=== PATIENT | female | born 1940 | race Two or more races ===

== ENCOUNTER 2017-12-06 23:38 | Inpatient (IN) | payer MEDICARE, MEDICAID ==
[~2017-12-06] VITALS: Ht 157.5 cm; Wt 72.5 kg
[2017-12-07] MEDS ORDERED: SODIUM CHLORIDE 0.9% 1,000ML IVBOLUS ONE ×2 (00:30→01:30)
[2017-12-07 00:50] LABS: BASOPHILS % (AUTO) 0 % (0-1); EOSINOPHILS # (AUTO) 0.15 x10^3/uL (0-0.4); EOSINOPHILS % (AUTO) 1 % (1-7); LYMPHOCYTES # (AUTO) 0.89 x10^3/uL (1-3.4); LYMPHOCYTES % (AUTO) 6 % (22-44); MD NO; MEAN CORPUSCULAR HEMOGLOBIN 32.5 pg (27.0-34.8); MEAN CORPUSCULAR HGB CONC 34.4 g/dL (32.4-35.8); MEAN CORPUSCULAR VOLUME 94.5 fL (80-100); MEAN PLATELET VOLUME 10.2 fL (7.4-10.4); MONOCYTES % (AUTO) 5 % (2-9); NEUTROPHILS # (AUTO) 12.22 x10^3/uL (1.8-6.8); NEUTROPHILS % (AUTO) 88 % (42-75); PLATELET COUNT 218 x10^3/uL (130-400); RED BLOOD COUNT 4.73 x10^6/uL (3.82-5.3); RED CELL DISTRIBUTION WIDTH 12.9 % (9.6-15.2)
[2017-12-07 00:59] LABS: ALANINE AMINOTRANSFERASE 34 U/L (12-78); ALBUMIN 4.1 g/dL (3.4-5.0); ANION GAP 8 mmol/L (5-15); CALCIUM 9.3 mg/dL (8.5-10.1); CHLORIDE 106 mmol/L (98-107); CREATININE 0.68 mg/dL (0.55-1.02)
[2017-12-07 01:02] LABS: ALKALINE PHOSPHATASE 92 U/L (45-117); TOTAL PROTEIN 7.6 g/dL (6.4-8.2)
[2017-12-07 01:14] LABS: INTERNATIONAL NORMALIZED RATIO 1.05 (0.93-1.1); PROTHROMBIN TIME 10.8 Seconds (9.6-11.5)
[2017-12-07] MEDS ORDERED: LOSA25TA5 PO (01:22)
[2017-12-07] MEDS ORDERED: ATOR20TA PO (01:22)
[2017-12-07] MEDS ORDERED: FEXO180T15 PO (01:22)
[2017-12-07] MEDS ORDERED: HYDR12.53 PO (01:22)
[2017-12-07 01:58] LABS: MICROSCOPIC NOT IND
[2017-12-07 02:08] LABS: CULTURE INDICATED? NO
[2017-12-07] MEDS ORDERED: POLYETHYLENE GLYCOL 17 GM PACKET PO PRN (03:30)
[2017-12-07] MEDS ORDERED: hydrALAzine 20 MG/ML, 1ML IVPush PRN (03:30)
[2017-12-07] MEDS ORDERED: OXYcodone IR 5MG TABLET PO PRN (03:30)
[2017-12-07] MEDS ORDERED: PROMETHAZINE 25 MG/ML, 1ML IM PRN (03:30)
[2017-12-07] MEDS ORDERED: ENALAPRILAT 1.25 MG/ML, 2ML IVPush PRN (03:30)
[2017-12-07] MEDS ORDERED: LABETALOL 5MG/ML, 20ML IVPush PRN (03:30)
[2017-12-07] MEDS ORDERED: BISACODYL 10 MG SUPP PR PRN (03:30)
[2017-12-07] MEDS ORDERED: ACETAMINOPHEN 325 MG TABLET PO PRN (03:30)
[2017-12-07] MEDS ORDERED: ONDANSETRON 2MG/ML, 2ML IVPush PRN (03:30)
[2017-12-07] MEDS ORDERED: DOCUSATE 100 MG CAPSULE PO PRN (03:30)
[2017-12-07] MEDS ORDERED: morphine SULFATE 10 MG/ML, 1ML IVPush PRN (03:30)
[2017-12-07] MEDS ORDERED: ONDANSETRON ODT 4 MG PO PRN (03:30)
[2017-12-07 03:31] VITALS: BP 124/77
[2017-12-07 04:09] LABS: FREE T4 (FREE THYROXINE) 1.04 ng/dL (0.76-1.46); TROPONIN I < 0.015 ng/mL (0.000-0.045)
[2017-12-07 04:12] LABS: HEMOGLOBIN A1C 6.1 % (4.2-6.3)
[2017-12-07 04:14] LABS: THYROID STIMULATING HORMONE 0.698 mIU/L (0.358-3.740)
[2017-12-07] MEDS: HEPARIN 5,000 UNITS/ML, 1ML SQ SCH ×3 (05:04→20:06)
[2017-12-07] MEDS: D5%-0.9% NACL+KCL 20MEQ 1,000 ML IV SCH ×3 (05:06→23:54)
[2017-12-07 06:20] LABS: CLOSTRIDIUM DIFFICILE ANTIGEN NEGATIVE; CLOSTRIDIUM DIFFICILE TOXIN NEGATIVE (Negative)
[2017-12-07 07:31] VITALS: BP 100/57
[2017-12-07 08:09] LABS: TROPONIN I < 0.015 ng/mL (0.000-0.045)
[2017-12-07] MEDS ORDERED: CHOL2000 PO (08:54)
[2017-12-07] MEDS ORDERED: HYDROCHLOROTHIAZIDE 12.5 MG CAPSULE PO SCH (09:00)
[2017-12-07] MEDS ORDERED: ATORVASTATIN 20 MG TABLET PO SCH (09:00)
[2017-12-07] MEDS ORDERED: LOSARTAN 25MG TABLET PO SCH (09:00)
[2017-12-07] MEDS ORDERED: MAALOX/HYOSCYAMINE/LIDOCAINE 45 ML BTL PO ONE (11:00)
[2017-12-07] MEDS: SUCRALFATE 1 GM/10 ML UDC PO SCH ×3 (12:35→20:06)
[2017-12-07 13:16] VITALS: BP 130/78
[2017-12-07 19:01] VITALS: BP 173/76
[2017-12-07] MEDS: LORATADINE 10 MG TABLET PO SCH (20:05)
[2017-12-07] MEDS: ATORVASTATIN 20 MG TABLET PO SCH (20:06)
[2017-12-07 20:11] VITALS: BP 156/70
[2017-12-08] VITALS (9 sets, daily range): BP systolic 118–170; BP diastolic 68–85
[2017-12-08] MEDS: D5%-0.9% NACL+KCL 20MEQ 1,000 ML IV SCH (05:00)
[2017-12-08] MEDS: HEPARIN 5,000 UNITS/ML, 1ML SQ SCH ×3 (05:06→20:53)
[2017-12-08 05:23] LABS: ALANINE AMINOTRANSFERASE 44 U/L (12-78); ALBUMIN 2.9 g/dL (3.4-5.0); ANION GAP 7 mmol/L (5-15); CALCIUM 7.3 mg/dL (8.5-10.1); CHLORIDE 108 mmol/L (98-107); CHOLESTEROL, TOTAL 79 mg/dL (140-239); CREATININE 0.51 mg/dL (0.55-1.02)
[2017-12-08 05:25] LABS: ALKALINE PHOSPHATASE 74 U/L (45-117); BASOPHILS # (AUTO) 0.01 x10^3/uL (0-0.1); BASOPHILS % (AUTO) 0 % (0-1); BILIRUBIN,TOTAL 0.6 mg/dL (0.2-1.0); CHOL/HDL RATIO 1.8; EOSINOPHILS # (AUTO) 0.07 x10^3/uL (0-0.4); EOSINOPHILS % (AUTO) 1 % (1-7); HDL CHOL % 56 % (28-40); HDL CHOLESTEROL (DIRECT) 44 mg/dL (40-60); LDL CHOLESTEROL,CALCULATED 22 mg/dL (54-169); LDL/HDL RATIO 0.5 (0.5-3.0); LYMPHOCYTES # (AUTO) 1.34 x10^3/uL (1-3.4); LYMPHOCYTES % (AUTO) 19 % (22-44); MD NO; MEAN CORPUSCULAR HEMOGLOBIN 32.9 pg (27.0-34.8); MEAN CORPUSCULAR HGB CONC 34.3 g/dL (32.4-35.8); MEAN CORPUSCULAR VOLUME 95.9 fL (80-100); MONOCYTES # (AUTO) 0.66 x10^3/uL (0.2-0.8); MONOCYTES % (AUTO) 9 % (2-9); NEUTROPHILS # (AUTO) 5.08 x10^3/uL (1.8-6.8); NEUTROPHILS % (AUTO) 71 % (42-75); PLATELET COUNT 149 x10^3/uL (130-400); RED BLOOD COUNT 3.81 x10^6/uL (3.82-5.3); RED CELL DISTRIBUTION WIDTH 12.6 % (9.6-15.2); TOTAL PROTEIN 5.9 g/dL (6.4-8.2); TRIGLYCERIDES 63 mg/dL (50-200); VLDL CHOLESTEROL 13 mg/dL (0-25)
[2017-12-08] MEDS: SUCRALFATE 1 GM/10 ML UDC PO SCH ×4 (09:05→20:52)
[2017-12-08] MEDS: HYDROCHLOROTHIAZIDE 12.5 MG CAPSULE PO SCH (09:05)
[2017-12-08] MEDS: LOSARTAN 25MG TABLET PO SCH (09:05)
[2017-12-08] MEDS ORDERED: OMNIPAQUE 350 MG/ML, 100ML BOTTLE ONE (18:00)
[2017-12-08] MEDS: ATORVASTATIN 20 MG TABLET PO SCH (20:53)
[2017-12-08] MEDS: LORATADINE 10 MG TABLET PO SCH (20:53)
[2017-12-09 00:03] VITALS: BP 165/64
[2017-12-09] MEDS: HEPARIN 5,000 UNITS/ML, 1ML SQ SCH ×3 (05:36→20:23)
[2017-12-09 05:53] LABS: BASOPHILS # (AUTO) 0.04 x10^3/uL (0-0.1); BASOPHILS % (AUTO) 1 % (0-1); EOSINOPHILS # (AUTO) 0.15 x10^3/uL (0-0.4); EOSINOPHILS % (AUTO) 2 % (1-7); LYMPHOCYTES % (AUTO) 27 % (22-44); MD NO; MEAN CORPUSCULAR HEMOGLOBIN 31.9 pg (27.0-34.8); MEAN CORPUSCULAR VOLUME 93.9 fL (80-100); MEAN PLATELET VOLUME 10.1 fL (7.4-10.4); MONOCYTES # (AUTO) 1.33 x10^3/uL (0.2-0.8); MONOCYTES % (AUTO) 16 % (2-9); NEUTROPHILS # (AUTO) 4.73 x10^3/uL (1.8-6.8); NEUTROPHILS % (AUTO) 55 % (42-75); PLATELET COUNT 168 x10^3/uL (130-400); RED BLOOD COUNT 4.32 x10^6/uL (3.82-5.3); RED CELL DISTRIBUTION WIDTH 12.6 % (9.6-15.2)
[2017-12-09 06:01] LABS: ANION GAP 7 mmol/L (5-15); CALCIUM 8.4 mg/dL (8.5-10.1); CHLORIDE 103 mmol/L (98-107); CREATININE 0.47 mg/dL (0.55-1.02)
[2017-12-09 07:14] VITALS: BP 151/70
[2017-12-09 07:44] VITALS: BP 136/76
[2017-12-09] MEDS: SUCRALFATE 1 GM/10 ML UDC PO SCH ×4 (07:53→20:23)
[2017-12-09] MEDS: HYDROCHLOROTHIAZIDE 12.5 MG CAPSULE PO SCH (07:56)
[2017-12-09] MEDS: LOSARTAN 25MG TABLET PO SCH (07:56)
[2017-12-09] MEDS ORDERED: POTASSIUM CHLORIDE 20 MEQ TAB.ER.PRT PO ONE (08:00)
[2017-12-09] MEDS ORDERED: CEFTRIAXONE 1,000 MG in SODIUM CHLORIDE 0.9% 50 ML IV SCH (11:30)
[2017-12-09] MEDS: METRONIDAZOLE PMX 500MG/100ML 100 ML IV SCH ×2 (11:53→20:23)
[2017-12-09 13:56] VITALS: BP 128/83
[2017-12-09] MEDS: ATORVASTATIN 20 MG TABLET PO SCH (20:23)
[2017-12-09] MEDS: LORATADINE 10 MG TABLET PO SCH (20:25)
[2017-12-09 21:40] VITALS: BP 135/78
[2017-12-10 00:51] VITALS: BP 137/72
[2017-12-10] MEDS: METRONIDAZOLE PMX 500MG/100ML 100 ML IV SCH (03:59)
[2017-12-10] MEDS: HEPARIN 5,000 UNITS/ML, 1ML SQ SCH (04:00)
[2017-12-10 07:30] VITALS: BP 154/73
[2017-12-10] MEDS ORDERED: POTASSIUM CHLORIDE 20 MEQ TAB.ER.PRT PO ONE (07:30)
[2017-12-10] MEDS: LOSARTAN 25MG TABLET PO SCH (09:03)
[2017-12-10] MEDS: HYDROCHLOROTHIAZIDE 12.5 MG CAPSULE PO SCH (09:03)
[2017-12-10] MEDS: SUCRALFATE 1 GM/10 ML UDC PO SCH (09:03)
[2017-12-10 09:05] VITALS: BP 111/68
[2017-12-10] MEDS ORDERED: METR500T PO (10:16)
[2017-12-10] MEDS ORDERED: CEFD300C37 PO (10:16)
== END 2017-12-10 11:47 | disposition home or self-care (01) | DRG 872 ==
LOC: ED 23:58 → EDIP 12-07 01:48 → 4WST 12-07 04:20
PROVIDERS: ADMIT Internal Medicine; ATTEND Internal Medicine
DX: A41.9 Sepsis, unspecified organism (principal); K52.9 Noninfective gastroenteritis and colitis, unspecified; I10 Essential (primary) hypertension; E78.5 Hyperlipidemia, unspecified; K21.9 Gastro-esophageal reflux disease without esophagitis; Z90.49 Acquired absence of other specified parts of digestive tract; R00.0 Tachycardia, unspecified; R53.1 Weakness; R63.0 Anorexia; Z68.29 Body mass index [BMI] 29.0-29.9, adult
CPT/HCPCS: 36415; 71045; 74177; 76700; 80048; 80053; 80061; 81003; 83036; 83605; 83735; 84145; 84439; 84443; 84484; 85025; 85610; 85730; 87040; 87046; 87324; 87427; 89055; 93005; 99285; J0696; J1644; Q9967; J3480; J7030